=== PATIENT | female | born 1985 | race African-American/Black ===

== ENCOUNTER 2016-09-13 09:46 | Emergency (ER) | payer OTHER ==
[~2016-09-13] VITALS: Ht 149.9 cm; Wt 58.0 kg
[2016-09-13 10:12] VITALS: BP 115/84
== END 2016-09-13 11:25 | disposition home or self-care (01) ==
LOC: ER 10:12
DX: L02.411 Cutaneous abscess of right axilla (principal); F12.10 Cannabis abuse, uncomplicated
CPT/HCPCS: 99283